=== PATIENT | male | born 1965 | race Caucasian/White ===

== ENCOUNTER 2016-10-21 15:42 | Emergency (ER) | payer OTHER ==
--- NOTE | ~2016-10-21 | ER ---
PATIENT'S NAME: KRISTINE QUEZADA [facility] AGE: 51 Y [address] ROOM: [place] [id number] LOCATION: [facility] ADMIT DATE: 10/21/2016 ER/Outpatient Report DISCHARGE DATE: 10/21/2016 FAMILY PHYSICIAN: PHYSICIAN, NO ATTENDING PHYSICIAN: Jus Chester Time of Arrival: 1547 hours. Time of Evaluation: 1549 hours. CHIEF COMPLAINT: Right shoulder pain, elevated blood pressure. HISTORY OF PRESENT ILLNESS: The patient is a 51-year-old male, who presents to the emergency department today with a chief complaint of right shoulder pain and increased blood pressure. He reports this started 2 days prior to arrival with increasing pain. It is sharp. It is worse with movement. The patient does have a long history of shoulder injuries and has had replacement. He did present to [facility] today, and his blood pressure was found high, so he was sent over here for further evaluation. He denies any chest pain. No shortness of breath. No cough. No fevers or chills. No nausea or vomiting. No abdominal pain. No diarrhea or constipation. No headache. No blurry vision or double vision. PAST MEDICAL HISTORY: Dyslipidemia, chronic shoulder pain. PAST SURGICAL HISTORY: Right shoulder surgery x3, hemorrhoidectomy. SOCIAL HISTORY: The patient denies any tobacco use. Reports occasional alcohol use. Denies any illicit drug use. ALLERGIES: IV DYE. MEDICATIONS: 1. Simvastatin. 2. Fenofibrate. PRIMARY CARE DOCTOR: None. REVIEW OF SYSTEMS: PATIENT'S NAME: KRISTINE QUEZADA [facility] AGE: 51 Y [address] ROOM: [place] [id number] LOCATION: [facility] ADMIT DATE: 10/21/2016 ER/Outpatient Report DISCHARGE DATE: 10/21/2016 FAMILY PHYSICIAN: PHYSICIAN, NO ATTENDING PHYSICIAN: Jus Chester All systems are reviewed by myself and are negative with the exception of those discussed in the HPI and past medical history. PHYSICAL EXAMINATION: VITAL SIGNS: Weight 104 kg, blood pressure 216/106, pulse 80, respiratory rate 16, temperature 97.4, oxygen saturation 95% on room air. GENERAL: The patient is a 51-year-old male, who appears stated age, in no acute distress at this time. HEENT: Head: Normocephalic atraumatic. Pupils are equal, round, and reactive to light and accommodation. Extraocular motions are intact. Nares are patent bilaterally. TMs are clear. Oropharynx is clear. NECK: Supple. There is no nuchal rigidity. CARDIOVASCULAR: Regular rate and rhythm. No murmurs, rubs, or gallops. LUNGS: Clear to auscultation bilaterally. No wheezes, rales, or rhonchi. ABDOMEN: Soft, nontender, and nondistended. No rebound, rigidity, or guarding. MUSCULOSKELETAL: The patient has some mild decreased pain with range of motion and mild decreased tenderness to palpation. He is neurovascularly intact. He has some mild decreased muscle strength in the right upper extremity. SKIN: Warm and dry with no rashes or lesions noted. LABORATORY DATA AND X-RAYS: An x-ray of the right shoulder and chest x-ray shows no acute process. CBC is normal. CMP is normal. LFTs are normal. IMPRESSION: 1. Acute on chronic right shoulder pain. 2. Elevated blood pressure. 3. Initial visit. EMERGENCY DEPARTMENT COURSE: The patient was brought back to the examination room. Seen and evaluated by myself. An IV is established. The patient was given 20 mg of labetalol IV. His blood pressure has dropped down to 173/89. I have discussed results with the patient and his significant other, who is at bedside. Recommended a close followup with the primary care doctor for re-evaluation of the patient's blood pressure in 2 to 3 days. I have discussed following up with orthopedic surgeon as well in 3 to 5 days for re-evaluation. The patient is agreeable without further questions. DISPOSITION: The patient discharged home in good condition. PATIENT'S NAME: KRISTINE QUEZADA [facility] AGE: 51 Y [address] ROOM: [place] [address] LOCATION: [facility] ADMIT DATE: 10/21/2016 ER/Outpatient Report DISCHARGE DATE: 10/21/2016 FAMILY PHYSICIAN: PHYSICIAN, NO ATTENDING PHYSICIAN: Jus Chester DO YONY VIVEROS/rakel /[id number] d: 10/21/162119 t: 10/24/161932, OUTPATIENT REPORT
[2016-10-21 16:10] LABS: BASOPHIL % 0.5 %; EOSINOPHIL # 0.2 K/uL (0.0-0.5); EOSINOPHIL % 2.5 %; HEMATOCRIT 42.6 % (37.0-53.0); HEMOGLOBIN 14.6 g/dL (12.0-17.0); IMMATURE GRANULOCYTE % 0.1 %; LYMPHOCYTE # 2.8 K/uL (0.8-4.0); LYMPHOCYTE % 37.8 %; MCH 30.6 pg (27.0-34.0); MCHC 34.3 gm/dL (32.0-36.5); MCV 89.3 fl (83.0-98.0); MONOCYTE # 0.8 K/uL (0.0-1.0); MONOCYTE % 10.4 %; MPV 9.6 fl (9.4-12.4); NEUTROPHIL # (ANC) 3.6 K/uL (1.4-9.0); NEUTROPHIL % 48.7 %; NRBC % 0 /100WBC (0-0.00); PLATELET COUNT 272 K/uL (150-450); RBC 4.77 M/uL (4.00-6.00); WBC 7.3 K/uL (4.0-11.0)
[2016-10-21 16:29] LABS: ALBUMIN 4.5 gm/dL (3.5-5.0); ALK PHOS 50 IU/L (33-138); ALT 41 IU/L (12-78); ANION GAP 11.8 (10.0-19.0); AST 20 IU/L (10-40); BLOOD UREA NITROGEN 16 mg/dL (6-24); CALCIUM 9.1 mg/dL (8.5-10.5); CHLORIDE 109 mMol/L (96-110); CO2 26 mMol/L (22-32); CREATININE 0.9 mg/dL (0.6-1.3); ESTIMATED GFR (MDRD EQUATION) > 60; POTASSIUM 3.8 mMol/L (3.7-5.1); SODIUM 143 mMol/L (135-145); TOTAL BILIRUBIN 0.5 mg/dL (0.0-1.5); TOTAL PROTEIN 7.9 g/dL (6.0-8.4)
== END 2016-10-21 16:55 | disposition disaster alternative care site (69) ==
LOC: GMED 15:42
PROVIDERS: Emergency Medicine
DX: M25.511 Pain in right shoulder (principal); G89.29 Other chronic pain; I10 Essential (primary) hypertension; E78.5 Hyperlipidemia, unspecified; Z98.890 Other specified postprocedural states